=== PATIENT | male | born 1940 | race Caucasian/White ===

== ENCOUNTER 2016-03-20 20:23 | Emergency (ER) | payer MEDICARE, BC | END 2016-03-21 00:07 | disposition home or self-care (01) | LOC: ER 20:23 | DX: I11.0 Hypertensive heart disease with heart failure (principal); I50.22 Chronic systolic (congestive) heart failure; I50.1 Left ventricular failure, unspecified; I95.0 Idiopathic hypotension; I25.10 Atherosclerotic heart disease of native coronary artery without angina pectoris; Z95.1 Presence of aortocoronary bypass graft; Z79.01 Long term (current) use of anticoagulants | CPT/HCPCS: 36415; 80053; 82553; 84484; 85025; 93005 ==